=== PATIENT | female | born 1975 | race Caucasian/White ===

== ENCOUNTER → 2018-02-24 | Outpatient (REF) ==
[~2018-02-24] MED LIST: ALBU8.5H12 IH; ARIP5TAB28 PO; ATOM40CA7 PO; AUG500 PO; BAC10 PO; BIRTH CONTROL PILL; BUPR300T55 PO; BUPXL150 PO; CIT20 PO; CYCL-332 PO; IBU600 PO; LORA-639 PO; MVM PO; MYLL PO; PRE20 PO; QUE25 PO; TRAZ50 PO; ZOLP-350 PO
[2018-02-24 11:16] LABS: LDL CHOLESTEROL 83 mg/dl
== END ==
DX: Z02.9 Encounter for administrative examinations, unspecified (principal)

== ENCOUNTER → 2018-12-01 | Outpatient (CLI) | payer OTHER ==
--- NOTE | 2018-12-07 08:33 | RADIOLOGY IMAGING REPORT ---
FACILITY: [facility] - [place], [place] PATIENT NAME: CARTER IBRAHIM : [id number] MR: [id number] V: [id number] EXAM DATE: [id number] ORDERING PHYSICIAN: MANN MENDOZA TECHNOLOGIST: Steven Guerin RDMS, [place] PROCEDURE:US LEFT BREAST COMPARISON:Previous not currently available for comparison. INDICATIONS:Follow-up Left axillary adenopathy, lymph nodes have decreased in size compared to previous according to patient. FINDINGS: Ultrasound images were obtained of the Left axilla. Several oval shaped fat containing lymph nodes measuring up to 1.5cm in diameter are present in the Left axilla. No other cystic or solid masses are identified. DIAGNOSTIC CATEGORY 2--BENIGN FINDING. RECOMMENDATIONS: CLINICAL CORRELATION WITH REGUARD TO CHRONIC LEFT AXILLARY ADENOPATHY. IMPRESSION: BIRADS 2: Benign finding. Left axillary adenopathy, probably reactive. Dictated by: Shailesh Miles M.D. on 12/01/2018 at 15:35 Transcribed by: JULIETH on 12/01/2018 at 15:46 Approved by: Qi Shaikh M.D. on 12/07/2018 at 8:32 [facility]
== END ==
LOC: US 01:22
PROVIDERS: ATTEND Advanced Practice Midwife
DX: R59.0 Localized enlarged lymph nodes (principal)

== ENCOUNTER → 2019-01-18 | Outpatient (REF) ==
[2019-01-18 11:31] LABS: LDL CHOLESTEROL 79 mg/dl
== END ==
DX: Z02.9 Encounter for administrative examinations, unspecified (principal)

== ENCOUNTER → 2019-01-18 | Outpatient (CLI) | payer OTHER | LOC: LAB 10:58 | PROVIDERS: ATTEND Family Medicine | DX: E55.9 Vitamin D deficiency, unspecified (principal) | CPT/HCPCS: 36415; 82306 ==